=== PATIENT | male | born 1945 | race Caucasian/White ===

== ENCOUNTER → 2019-06-09 | Outpatient (CLI) | payer MEDICARE, OTHER ==
[~2019-06-09] VITALS: Ht 172.7 cm; Wt 95.0 kg
[~2019-06-09] MED LIST: ACET-2902 PO; ALPR1TAB7 PO; ASCO500 PO; ASPI81TA39 PO; ATOR10TA84 PO; AUD NEB; CYAN500T4 PO; DUTA.5 PO; ENOX30DI5 SQ; FISH1CAP49 PO; FLUT1DIS IH; FOLI0.4T14 PO; GLIP5 PO; IBUP-2070 PO; INSNOV SQ; LIDOCAINE 4% 50 ML SOLUTION TP ONE; METF-446 PO; MOM30 PO; OMEP20TA25 PO; PARO25TA21 PO; PERCT PO; SITA100 PO; VITA400T9 PO; [UNRECOGNIZED DRUG - CODE] PO; [UNRECOGNIZED DRUG - CODE] PO
[2019-06-09 10:14] VITALS: BP 122/83
== END | disposition home or self-care (01) ==
LOC: HBOWC 09:43
PROVIDERS: ATTEND Podiatrist
DX: T86.828 Other complications of skin graft (allograft) (autograft) (principal); E11.622 Type 2 diabetes mellitus with other skin ulcer; I70.248 Atherosclerosis of native arteries of left leg with ulceration of other part of lower leg; L97.825 Non-pressure chronic ulcer of other part of left lower leg with muscle involvement without evidence of necrosis; I87.2 Venous insufficiency (chronic) (peripheral); L90.9 Atrophic disorder of skin, unspecified; L60.2 Onychogryphosis; I25.10 Atherosclerotic heart disease of native coronary artery without angina pectoris; E78.5 Hyperlipidemia, unspecified; E78.00 Pure hypercholesterolemia, unspecified; I11.0 Hypertensive heart disease with heart failure; I50.30 Unspecified diastolic (congestive) heart failure; F41.1 Generalized anxiety disorder; F17.210 Nicotine dependence, cigarettes, uncomplicated; Z98.1 Arthrodesis status; Z96.649 Presence of unspecified artificial hip joint; Z86.73 Personal history of transient ischemic attack (TIA), and cerebral infarction without residual deficits; Y83.2 Surgical operation with anastomosis, bypass or graft as the cause of abnormal reaction of the patient, or of later complication, without mention of misadventure at the time of the procedure
CPT/HCPCS: 11042

== ENCOUNTER → 2019-06-16 | Outpatient (CLI) | payer MEDICARE, OTHER ==
[~2019-06-16] MED LIST changes: -AUD NEB; -CYAN500T4 PO; -ENOX30DI5 SQ; -INSNOV SQ; -MOM30 PO; -PERCT PO; -[UNRECOGNIZED DRUG - CODE] PO
[2019-06-16 10:29] VITALS: BP 120/64
== END | disposition home or self-care (01) ==
LOC: HBOWC 09:56
PROVIDERS: ATTEND Podiatrist
DX: T86.828 Other complications of skin graft (allograft) (autograft) (principal); E11.622 Type 2 diabetes mellitus with other skin ulcer; I70.248 Atherosclerosis of native arteries of left leg with ulceration of other part of lower leg; L97.825 Non-pressure chronic ulcer of other part of left lower leg with muscle involvement without evidence of necrosis; I87.2 Venous insufficiency (chronic) (peripheral); L90.9 Atrophic disorder of skin, unspecified; L60.2 Onychogryphosis; I25.10 Atherosclerotic heart disease of native coronary artery without angina pectoris; E78.5 Hyperlipidemia, unspecified; E78.00 Pure hypercholesterolemia, unspecified; I11.0 Hypertensive heart disease with heart failure; I50.30 Unspecified diastolic (congestive) heart failure; F41.1 Generalized anxiety disorder; F17.210 Nicotine dependence, cigarettes, uncomplicated; Z98.1 Arthrodesis status; Z96.649 Presence of unspecified artificial hip joint; Z86.73 Personal history of transient ischemic attack (TIA), and cerebral infarction without residual deficits; Y83.2 Surgical operation with anastomosis, bypass or graft as the cause of abnormal reaction of the patient, or of later complication, without mention of misadventure at the time of the procedure
CPT/HCPCS: 11042

== ENCOUNTER → 2019-06-21 | Outpatient (CLI) | payer MEDICARE, OTHER ==
[2019-06-21 08:20] VITALS: BP 144/84
== END | disposition home or self-care (01) ==
LOC: HBOWC 08:08
PROVIDERS: ATTEND Internal Medicine
DX: T86.828 Other complications of skin graft (allograft) (autograft) (principal); E11.622 Type 2 diabetes mellitus with other skin ulcer; I70.248 Atherosclerosis of native arteries of left leg with ulceration of other part of lower leg; L97.825 Non-pressure chronic ulcer of other part of left lower leg with muscle involvement without evidence of necrosis; I87.2 Venous insufficiency (chronic) (peripheral); L90.9 Atrophic disorder of skin, unspecified; L60.2 Onychogryphosis; I25.10 Atherosclerotic heart disease of native coronary artery without angina pectoris; E78.5 Hyperlipidemia, unspecified; E78.00 Pure hypercholesterolemia, unspecified; I11.0 Hypertensive heart disease with heart failure; I50.30 Unspecified diastolic (congestive) heart failure; F41.1 Generalized anxiety disorder; F17.210 Nicotine dependence, cigarettes, uncomplicated; Z98.1 Arthrodesis status; Z96.649 Presence of unspecified artificial hip joint; Z86.73 Personal history of transient ischemic attack (TIA), and cerebral infarction without residual deficits; Y83.2 Surgical operation with anastomosis, bypass or graft as the cause of abnormal reaction of the patient, or of later complication, without mention of misadventure at the time of the procedure
CPT/HCPCS: 11042

== ENCOUNTER → 2019-06-30 | Outpatient (CLI) | payer MEDICARE, OTHER ==
[~2019-06-30] MED LIST changes: -LIDOCAINE 4% 50 ML SOLUTION TP ONE
[2019-06-30 10:10] VITALS: BP 159/78
== END | disposition home or self-care (01) ==
LOC: HBOWC 09:50
PROVIDERS: ATTEND Podiatrist
DX: T86.828 Other complications of skin graft (allograft) (autograft) (principal); E11.622 Type 2 diabetes mellitus with other skin ulcer; L97.325 Non-pressure chronic ulcer of left ankle with muscle involvement without evidence of necrosis; I87.2 Venous insufficiency (chronic) (peripheral); L90.9 Atrophic disorder of skin, unspecified; L60.2 Onychogryphosis; I25.10 Atherosclerotic heart disease of native coronary artery without angina pectoris; E78.5 Hyperlipidemia, unspecified; E78.00 Pure hypercholesterolemia, unspecified; I11.0 Hypertensive heart disease with heart failure; I50.30 Unspecified diastolic (congestive) heart failure; F41.1 Generalized anxiety disorder; F17.210 Nicotine dependence, cigarettes, uncomplicated; Z86.73 Personal history of transient ischemic attack (TIA), and cerebral infarction without residual deficits; Z96.649 Presence of unspecified artificial hip joint; Z79.82 Long term (current) use of aspirin; Z79.84 Long term (current) use of oral hypoglycemic drugs; Z98.1 Arthrodesis status; Y83.2 Surgical operation with anastomosis, bypass or graft as the cause of abnormal reaction of the patient, or of later complication, without mention of misadventure at the time of the procedure
CPT/HCPCS: 11042

== ENCOUNTER → 2019-07-07 | Outpatient (CLI) | payer MEDICARE, OTHER ==
[~2019-07-07] MED LIST changes: +LIDOCAINE 4% 50 ML SOLUTION TP ONE
[2019-07-07 10:32] VITALS: BP 139/70
== END | disposition home or self-care (01) ==
LOC: HBOWC 10:15
PROVIDERS: ATTEND Podiatrist
DX: T86.828 Other complications of skin graft (allograft) (autograft) (principal); E11.622 Type 2 diabetes mellitus with other skin ulcer; I70.243 Atherosclerosis of native arteries of left leg with ulceration of ankle; L97.325 Non-pressure chronic ulcer of left ankle with muscle involvement without evidence of necrosis; I87.2 Venous insufficiency (chronic) (peripheral); L90.9 Atrophic disorder of skin, unspecified; L60.2 Onychogryphosis; E78.00 Pure hypercholesterolemia, unspecified; I25.10 Atherosclerotic heart disease of native coronary artery without angina pectoris; I11.0 Hypertensive heart disease with heart failure; I50.30 Unspecified diastolic (congestive) heart failure; E78.5 Hyperlipidemia, unspecified; F41.1 Generalized anxiety disorder; F17.210 Nicotine dependence, cigarettes, uncomplicated; Z96.649 Presence of unspecified artificial hip joint; Z86.73 Personal history of transient ischemic attack (TIA), and cerebral infarction without residual deficits; Z79.82 Long term (current) use of aspirin; Z79.84 Long term (current) use of oral hypoglycemic drugs; Z98.1 Arthrodesis status; Y83.2 Surgical operation with anastomosis, bypass or graft as the cause of abnormal reaction of the patient, or of later complication, without mention of misadventure at the time of the procedure
CPT/HCPCS: 11042

== ENCOUNTER → 2019-07-14 | Outpatient (CLI) | payer MEDICARE, OTHER ==
[2019-07-14 10:20] VITALS: BP 139/73
== END | disposition home or self-care (01) ==
LOC: HBOWC 10:02
PROVIDERS: ATTEND Podiatrist
DX: T86.828 Other complications of skin graft (allograft) (autograft) (principal); I70.248 Atherosclerosis of native arteries of left leg with ulceration of other part of lower leg; E11.622 Type 2 diabetes mellitus with other skin ulcer; L97.825 Non-pressure chronic ulcer of other part of left lower leg with muscle involvement without evidence of necrosis; I87.2 Venous insufficiency (chronic) (peripheral); L90.9 Atrophic disorder of skin, unspecified; L60.2 Onychogryphosis; I25.10 Atherosclerotic heart disease of native coronary artery without angina pectoris; E78.5 Hyperlipidemia, unspecified; E78.00 Pure hypercholesterolemia, unspecified; I11.0 Hypertensive heart disease with heart failure; I50.30 Unspecified diastolic (congestive) heart failure; F41.1 Generalized anxiety disorder; F17.210 Nicotine dependence, cigarettes, uncomplicated; Z96.649 Presence of unspecified artificial hip joint; Z86.73 Personal history of transient ischemic attack (TIA), and cerebral infarction without residual deficits; Z79.82 Long term (current) use of aspirin; Z79.84 Long term (current) use of oral hypoglycemic drugs; Z98.1 Arthrodesis status; Y83.2 Surgical operation with anastomosis, bypass or graft as the cause of abnormal reaction of the patient, or of later complication, without mention of misadventure at the time of the procedure
CPT/HCPCS: 11042

== ENCOUNTER → 2019-07-21 | Outpatient (CLI) | payer MEDICARE, OTHER ==
[~2019-07-21] MED LIST changes: +LIDOCAINE 2% 5 ML JELLY TP ONE; -LIDOCAINE 4% 50 ML SOLUTION TP ONE
[2019-07-21 10:48] VITALS: BP 133/85
== END | disposition home or self-care (01) ==
LOC: HBOWC 10:06
PROVIDERS: ATTEND Podiatrist
DX: T86.828 Other complications of skin graft (allograft) (autograft) (principal); I70.248 Atherosclerosis of native arteries of left leg with ulceration of other part of lower leg; E11.622 Type 2 diabetes mellitus with other skin ulcer; L97.825 Non-pressure chronic ulcer of other part of left lower leg with muscle involvement without evidence of necrosis; I87.2 Venous insufficiency (chronic) (peripheral); L90.9 Atrophic disorder of skin, unspecified; L60.2 Onychogryphosis; I25.10 Atherosclerotic heart disease of native coronary artery without angina pectoris; E78.5 Hyperlipidemia, unspecified; E78.00 Pure hypercholesterolemia, unspecified; I11.0 Hypertensive heart disease with heart failure; I50.30 Unspecified diastolic (congestive) heart failure; F41.1 Generalized anxiety disorder; F17.210 Nicotine dependence, cigarettes, uncomplicated; Z96.649 Presence of unspecified artificial hip joint; Z86.73 Personal history of transient ischemic attack (TIA), and cerebral infarction without residual deficits; Z79.82 Long term (current) use of aspirin; Z79.84 Long term (current) use of oral hypoglycemic drugs; Z98.1 Arthrodesis status; Y83.2 Surgical operation with anastomosis, bypass or graft as the cause of abnormal reaction of the patient, or of later complication, without mention of misadventure at the time of the procedure
CPT/HCPCS: 11042

== ENCOUNTER → 2019-07-28 | Outpatient (CLI) | payer MEDICARE, OTHER ==
[2019-07-28 10:44] VITALS: BP 124/76
== END | disposition home or self-care (01) ==
LOC: HBOWC 10:11
PROVIDERS: ATTEND Podiatrist
DX: T86.828 Other complications of skin graft (allograft) (autograft) (principal); I70.248 Atherosclerosis of native arteries of left leg with ulceration of other part of lower leg; E11.622 Type 2 diabetes mellitus with other skin ulcer; L97.825 Non-pressure chronic ulcer of other part of left lower leg with muscle involvement without evidence of necrosis; I87.2 Venous insufficiency (chronic) (peripheral); L90.9 Atrophic disorder of skin, unspecified; L60.2 Onychogryphosis; I25.10 Atherosclerotic heart disease of native coronary artery without angina pectoris; E78.5 Hyperlipidemia, unspecified; E78.00 Pure hypercholesterolemia, unspecified; I11.0 Hypertensive heart disease with heart failure; I50.30 Unspecified diastolic (congestive) heart failure; F41.1 Generalized anxiety disorder; F17.210 Nicotine dependence, cigarettes, uncomplicated; Z96.649 Presence of unspecified artificial hip joint; Z86.73 Personal history of transient ischemic attack (TIA), and cerebral infarction without residual deficits; Z79.82 Long term (current) use of aspirin; Z79.84 Long term (current) use of oral hypoglycemic drugs; Z98.1 Arthrodesis status; Y83.2 Surgical operation with anastomosis, bypass or graft as the cause of abnormal reaction of the patient, or of later complication, without mention of misadventure at the time of the procedure
CPT/HCPCS: 11042

== ENCOUNTER → 2019-08-04 | Outpatient (CLI) | payer MEDICARE, OTHER ==
[2019-08-04 10:10] VITALS: BP 125/69
== END | disposition home or self-care (01) ==
LOC: HBOWC 10:24
PROVIDERS: ATTEND Podiatrist
DX: T86.828 Other complications of skin graft (allograft) (autograft) (principal); I70.248 Atherosclerosis of native arteries of left leg with ulceration of other part of lower leg; E11.622 Type 2 diabetes mellitus with other skin ulcer; L97.822 Non-pressure chronic ulcer of other part of left lower leg with fat layer exposed; I87.2 Venous insufficiency (chronic) (peripheral); L90.9 Atrophic disorder of skin, unspecified; I25.10 Atherosclerotic heart disease of native coronary artery without angina pectoris; E78.5 Hyperlipidemia, unspecified; E78.00 Pure hypercholesterolemia, unspecified; I11.0 Hypertensive heart disease with heart failure; I50.30 Unspecified diastolic (congestive) heart failure; F41.1 Generalized anxiety disorder; F17.210 Nicotine dependence, cigarettes, uncomplicated; Z96.649 Presence of unspecified artificial hip joint; Z86.73 Personal history of transient ischemic attack (TIA), and cerebral infarction without residual deficits; Z79.82 Long term (current) use of aspirin; Z79.84 Long term (current) use of oral hypoglycemic drugs; Y83.2 Surgical operation with anastomosis, bypass or graft as the cause of abnormal reaction of the patient, or of later complication, without mention of misadventure at the time of the procedure
CPT/HCPCS: 11042

== ENCOUNTER → 2019-08-11 | Outpatient (CLI) | payer MEDICARE, OTHER ==
[2019-08-11 10:37] VITALS: BP 137/69
== END | disposition home or self-care (01) ==
LOC: HBOWC 10:07
PROVIDERS: ATTEND Podiatrist
DX: T86.828 Other complications of skin graft (allograft) (autograft) (principal); I70.248 Atherosclerosis of native arteries of left leg with ulceration of other part of lower leg; E11.622 Type 2 diabetes mellitus with other skin ulcer; L97.822 Non-pressure chronic ulcer of other part of left lower leg with fat layer exposed; I87.2 Venous insufficiency (chronic) (peripheral); L90.9 Atrophic disorder of skin, unspecified; I25.10 Atherosclerotic heart disease of native coronary artery without angina pectoris; E78.5 Hyperlipidemia, unspecified; E78.00 Pure hypercholesterolemia, unspecified; I11.0 Hypertensive heart disease with heart failure; I50.30 Unspecified diastolic (congestive) heart failure; F41.1 Generalized anxiety disorder; F17.210 Nicotine dependence, cigarettes, uncomplicated; Z96.649 Presence of unspecified artificial hip joint; Z86.73 Personal history of transient ischemic attack (TIA), and cerebral infarction without residual deficits; Z79.82 Long term (current) use of aspirin; Z79.84 Long term (current) use of oral hypoglycemic drugs; Y83.2 Surgical operation with anastomosis, bypass or graft as the cause of abnormal reaction of the patient, or of later complication, without mention of misadventure at the time of the procedure
CPT/HCPCS: 11042

== ENCOUNTER → 2019-08-18 | Outpatient (CLI) | payer MEDICARE, OTHER ==
[2019-08-18 10:53] VITALS: BP 133/66
== END | disposition home or self-care (01) ==
LOC: HBOWC 10:13
PROVIDERS: ATTEND Podiatrist
DX: T86.828 Other complications of skin graft (allograft) (autograft) (principal); I70.248 Atherosclerosis of native arteries of left leg with ulceration of other part of lower leg; E11.622 Type 2 diabetes mellitus with other skin ulcer; L97.822 Non-pressure chronic ulcer of other part of left lower leg with fat layer exposed; L90.9 Atrophic disorder of skin, unspecified; I25.10 Atherosclerotic heart disease of native coronary artery without angina pectoris; E78.5 Hyperlipidemia, unspecified; E78.00 Pure hypercholesterolemia, unspecified; I11.0 Hypertensive heart disease with heart failure; I50.30 Unspecified diastolic (congestive) heart failure; F41.1 Generalized anxiety disorder; I87.2 Venous insufficiency (chronic) (peripheral); Z98.1 Arthrodesis status; F17.210 Nicotine dependence, cigarettes, uncomplicated; Z96.649 Presence of unspecified artificial hip joint; Z86.73 Personal history of transient ischemic attack (TIA), and cerebral infarction without residual deficits; Z79.82 Long term (current) use of aspirin; Z79.84 Long term (current) use of oral hypoglycemic drugs; Y83.2 Surgical operation with anastomosis, bypass or graft as the cause of abnormal reaction of the patient, or of later complication, without mention of misadventure at the time of the procedure
CPT/HCPCS: 11042

== ENCOUNTER → 2019-08-25 | Outpatient (CLI) | payer MEDICARE, OTHER ==
[~2019-08-25] MED LIST changes: -LIDOCAINE 2% 5 ML JELLY TP ONE
[2019-08-25 10:17] VITALS: BP 120/82
== END | disposition home or self-care (01) ==
LOC: HBOWC 10:03
PROVIDERS: ATTEND Podiatrist
DX: T86.828 Other complications of skin graft (allograft) (autograft) (principal); E11.622 Type 2 diabetes mellitus with other skin ulcer; I70.243 Atherosclerosis of native arteries of left leg with ulceration of ankle; L97.322 Non-pressure chronic ulcer of left ankle with fat layer exposed; L90.9 Atrophic disorder of skin, unspecified; I25.10 Atherosclerotic heart disease of native coronary artery without angina pectoris; E78.5 Hyperlipidemia, unspecified; I11.0 Hypertensive heart disease with heart failure; I50.30 Unspecified diastolic (congestive) heart failure; F41.1 Generalized anxiety disorder; I87.2 Venous insufficiency (chronic) (peripheral); E78.00 Pure hypercholesterolemia, unspecified; L60.2 Onychogryphosis; F17.210 Nicotine dependence, cigarettes, uncomplicated; Z98.1 Arthrodesis status; Z96.649 Presence of unspecified artificial hip joint; Z86.73 Personal history of transient ischemic attack (TIA), and cerebral infarction without residual deficits; Z79.82 Long term (current) use of aspirin; Z79.84 Long term (current) use of oral hypoglycemic drugs; Y83.2 Surgical operation with anastomosis, bypass or graft as the cause of abnormal reaction of the patient, or of later complication, without mention of misadventure at the time of the procedure
CPT/HCPCS: 11042

== ENCOUNTER → 2019-09-01 | Outpatient (CLI) | payer MEDICARE, OTHER ==
[~2019-09-01] MED LIST changes: -ACET-2902 PO; +ACET-3207 PO
[2019-09-01 10:32] VITALS: BP 138/73
== END | disposition home or self-care (01) ==
LOC: HBOWC 10:26
PROVIDERS: ATTEND Podiatrist
DX: T86.828 Other complications of skin graft (allograft) (autograft) (principal); E11.622 Type 2 diabetes mellitus with other skin ulcer; I70.243 Atherosclerosis of native arteries of left leg with ulceration of ankle; L97.322 Non-pressure chronic ulcer of left ankle with fat layer exposed; L90.9 Atrophic disorder of skin, unspecified; I25.10 Atherosclerotic heart disease of native coronary artery without angina pectoris; E78.5 Hyperlipidemia, unspecified; I11.0 Hypertensive heart disease with heart failure; I50.30 Unspecified diastolic (congestive) heart failure; F41.1 Generalized anxiety disorder; I87.2 Venous insufficiency (chronic) (peripheral); E78.00 Pure hypercholesterolemia, unspecified; L60.2 Onychogryphosis; F17.210 Nicotine dependence, cigarettes, uncomplicated; Z98.1 Arthrodesis status; Z96.649 Presence of unspecified artificial hip joint; Z86.73 Personal history of transient ischemic attack (TIA), and cerebral infarction without residual deficits; Z79.82 Long term (current) use of aspirin; Z79.84 Long term (current) use of oral hypoglycemic drugs; Y83.2 Surgical operation with anastomosis, bypass or graft as the cause of abnormal reaction of the patient, or of later complication, without mention of misadventure at the time of the procedure
CPT/HCPCS: 11042

== ENCOUNTER → 2019-09-08 | Outpatient (CLI) | payer MEDICARE, OTHER ==
[~2019-09-08] MED LIST changes: +LIDOCAINE 4% 50 ML SOLUTION TP ONE
[2019-09-08 11:14] VITALS: BP 127/61
== END | disposition home or self-care (01) ==
LOC: HBOWC 10:19
PROVIDERS: ATTEND Podiatrist
DX: T86.828 Other complications of skin graft (allograft) (autograft) (principal); I70.243 Atherosclerosis of native arteries of left leg with ulceration of ankle; E11.622 Type 2 diabetes mellitus with other skin ulcer; L97.322 Non-pressure chronic ulcer of left ankle with fat layer exposed; L90.9 Atrophic disorder of skin, unspecified; I25.10 Atherosclerotic heart disease of native coronary artery without angina pectoris; E78.5 Hyperlipidemia, unspecified; I11.0 Hypertensive heart disease with heart failure; I50.30 Unspecified diastolic (congestive) heart failure; F41.1 Generalized anxiety disorder; I87.2 Venous insufficiency (chronic) (peripheral); E78.00 Pure hypercholesterolemia, unspecified; L60.2 Onychogryphosis; F17.210 Nicotine dependence, cigarettes, uncomplicated; Z98.1 Arthrodesis status; Z96.649 Presence of unspecified artificial hip joint; Z86.73 Personal history of transient ischemic attack (TIA), and cerebral infarction without residual deficits; Z79.82 Long term (current) use of aspirin; Z79.84 Long term (current) use of oral hypoglycemic drugs; Y83.2 Surgical operation with anastomosis, bypass or graft as the cause of abnormal reaction of the patient, or of later complication, without mention of misadventure at the time of the procedure
CPT/HCPCS: 11042

== ENCOUNTER → 2019-09-15 | Outpatient (CLI) | payer MEDICARE, OTHER ==
[~2019-09-15] MED LIST changes: +LIDOCAINE 2% 5 ML JELLY TP ONE; -LIDOCAINE 4% 50 ML SOLUTION TP ONE
== END | disposition home or self-care (01) ==
LOC: HBOWC 10:04
PROVIDERS: ATTEND Podiatrist
DX: I70.243 Atherosclerosis of native arteries of left leg with ulceration of ankle (principal); E11.622 Type 2 diabetes mellitus with other skin ulcer; L97.322 Non-pressure chronic ulcer of left ankle with fat layer exposed; I87.2 Venous insufficiency (chronic) (peripheral); E78.00 Pure hypercholesterolemia, unspecified; I25.10 Atherosclerotic heart disease of native coronary artery without angina pectoris; F41.1 Generalized anxiety disorder; E78.5 Hyperlipidemia, unspecified; I11.0 Hypertensive heart disease with heart failure; I50.30 Unspecified diastolic (congestive) heart failure; L60.2 Onychogryphosis; F17.210 Nicotine dependence, cigarettes, uncomplicated; Z96.649 Presence of unspecified artificial hip joint; Z79.84 Long term (current) use of oral hypoglycemic drugs; Z86.73 Personal history of transient ischemic attack (TIA), and cerebral infarction without residual deficits; Z79.4 Long term (current) use of insulin; Z79.82 Long term (current) use of aspirin; Z98.1 Arthrodesis status; Y83.2 Surgical operation with anastomosis, bypass or graft as the cause of abnormal reaction of the patient, or of later complication, without mention of misadventure at the time of the procedure
CPT/HCPCS: 11042

== ENCOUNTER → 2019-09-22 | Outpatient (CLI) | payer MEDICARE ==
[~2019-09-22] MED LIST changes: -LIDOCAINE 2% 5 ML JELLY TP ONE
== END | disposition home or self-care (01) ==
LOC: HBOWC 10:03
PROVIDERS: ATTEND Podiatrist
DX: I70.243 Atherosclerosis of native arteries of left leg with ulceration of ankle (principal); E11.622 Type 2 diabetes mellitus with other skin ulcer; L97.322 Non-pressure chronic ulcer of left ankle with fat layer exposed; I87.2 Venous insufficiency (chronic) (peripheral); E78.00 Pure hypercholesterolemia, unspecified; I25.10 Atherosclerotic heart disease of native coronary artery without angina pectoris; F41.1 Generalized anxiety disorder; E78.5 Hyperlipidemia, unspecified; I11.0 Hypertensive heart disease with heart failure; I50.30 Unspecified diastolic (congestive) heart failure; L60.2 Onychogryphosis; F17.210 Nicotine dependence, cigarettes, uncomplicated; Z96.649 Presence of unspecified artificial hip joint; Z79.84 Long term (current) use of oral hypoglycemic drugs; Z86.73 Personal history of transient ischemic attack (TIA), and cerebral infarction without residual deficits; Z79.4 Long term (current) use of insulin; Z79.82 Long term (current) use of aspirin; Z98.1 Arthrodesis status; Y83.2 Surgical operation with anastomosis, bypass or graft as the cause of abnormal reaction of the patient, or of later complication, without mention of misadventure at the time of the procedure
CPT/HCPCS: 11042

== ENCOUNTER → 2019-09-29 | Outpatient (CLI) | payer MEDICARE | END | disposition home or self-care (01) | LOC: HBOWC 09:59 | PROVIDERS: ATTEND Podiatrist | DX: I70.243 Atherosclerosis of native arteries of left leg with ulceration of ankle (principal); E11.622 Type 2 diabetes mellitus with other skin ulcer; L97.322 Non-pressure chronic ulcer of left ankle with fat layer exposed; I87.2 Venous insufficiency (chronic) (peripheral); E78.00 Pure hypercholesterolemia, unspecified; I25.10 Atherosclerotic heart disease of native coronary artery without angina pectoris; F41.1 Generalized anxiety disorder; E78.5 Hyperlipidemia, unspecified; I11.0 Hypertensive heart disease with heart failure; I50.30 Unspecified diastolic (congestive) heart failure; L60.2 Onychogryphosis; L90.9 Atrophic disorder of skin, unspecified; F17.210 Nicotine dependence, cigarettes, uncomplicated; Z96.649 Presence of unspecified artificial hip joint; Z79.84 Long term (current) use of oral hypoglycemic drugs; Z86.73 Personal history of transient ischemic attack (TIA), and cerebral infarction without residual deficits; Z79.4 Long term (current) use of insulin; Z79.82 Long term (current) use of aspirin; Z98.1 Arthrodesis status | CPT/HCPCS: 11042 ==

== ENCOUNTER → 2019-10-06 | Outpatient (CLI) | payer MEDICARE, MEDICAID, OTHER | END | disposition home or self-care (01) | LOC: HBOWC 09:53 | PROVIDERS: ATTEND Podiatrist | DX: I70.248 Atherosclerosis of native arteries of left leg with ulceration of other part of lower leg (principal); E11.622 Type 2 diabetes mellitus with other skin ulcer; L97.822 Non-pressure chronic ulcer of other part of left lower leg with fat layer exposed; I70.243 Atherosclerosis of native arteries of left leg with ulceration of ankle; L97.322 Non-pressure chronic ulcer of left ankle with fat layer exposed; I87.2 Venous insufficiency (chronic) (peripheral); E78.00 Pure hypercholesterolemia, unspecified; I25.10 Atherosclerotic heart disease of native coronary artery without angina pectoris; F41.1 Generalized anxiety disorder; E78.5 Hyperlipidemia, unspecified; I11.0 Hypertensive heart disease with heart failure; I50.30 Unspecified diastolic (congestive) heart failure; L60.2 Onychogryphosis; L90.9 Atrophic disorder of skin, unspecified; F17.210 Nicotine dependence, cigarettes, uncomplicated; Z96.649 Presence of unspecified artificial hip joint; Z79.84 Long term (current) use of oral hypoglycemic drugs; Z86.73 Personal history of transient ischemic attack (TIA), and cerebral infarction without residual deficits; Z79.4 Long term (current) use of insulin; Z79.82 Long term (current) use of aspirin; Z98.1 Arthrodesis status | CPT/HCPCS: 11042 ==

== ENCOUNTER → 2019-10-13 | Outpatient (CLI) | payer MEDICARE, OTHER ==
[~2019-10-13] MED LIST changes: +HYDROCORTISONE 1% 30 GM CREAM TP ONE; +LIDOCAINE 2% 5 ML JELLY ONE
== END | disposition home or self-care (01) ==
LOC: HBOWC 09:59
PROVIDERS: ATTEND Podiatrist
DX: I70.248 Atherosclerosis of native arteries of left leg with ulceration of other part of lower leg (principal); E11.622 Type 2 diabetes mellitus with other skin ulcer; L97.822 Non-pressure chronic ulcer of other part of left lower leg with fat layer exposed; I70.243 Atherosclerosis of native arteries of left leg with ulceration of ankle; L97.322 Non-pressure chronic ulcer of left ankle with fat layer exposed; I87.2 Venous insufficiency (chronic) (peripheral); E78.00 Pure hypercholesterolemia, unspecified; I25.10 Atherosclerotic heart disease of native coronary artery without angina pectoris; F41.1 Generalized anxiety disorder; E78.5 Hyperlipidemia, unspecified; I11.0 Hypertensive heart disease with heart failure; I50.30 Unspecified diastolic (congestive) heart failure; L60.2 Onychogryphosis; L90.9 Atrophic disorder of skin, unspecified; L84 Corns and callosities; F17.210 Nicotine dependence, cigarettes, uncomplicated; Z96.649 Presence of unspecified artificial hip joint; Z79.84 Long term (current) use of oral hypoglycemic drugs; Z86.73 Personal history of transient ischemic attack (TIA), and cerebral infarction without residual deficits; Z79.4 Long term (current) use of insulin; Z79.82 Long term (current) use of aspirin; Z98.1 Arthrodesis status
CPT/HCPCS: 11042

== ENCOUNTER → 2019-10-20 | Outpatient (CLI) | payer MEDICARE, OTHER ==
[~2019-10-20] MED LIST changes: -HYDROCORTISONE 1% 30 GM CREAM TP ONE; -LIDOCAINE 2% 5 ML JELLY ONE
== END | disposition home or self-care (01) ==
LOC: HBOWC 10:01
PROVIDERS: ATTEND Podiatrist
DX: I70.248 Atherosclerosis of native arteries of left leg with ulceration of other part of lower leg (principal); E11.622 Type 2 diabetes mellitus with other skin ulcer; L97.822 Non-pressure chronic ulcer of other part of left lower leg with fat layer exposed; I70.243 Atherosclerosis of native arteries of left leg with ulceration of ankle; L97.322 Non-pressure chronic ulcer of left ankle with fat layer exposed; I87.2 Venous insufficiency (chronic) (peripheral); E78.00 Pure hypercholesterolemia, unspecified; I25.10 Atherosclerotic heart disease of native coronary artery without angina pectoris; F41.1 Generalized anxiety disorder; E78.5 Hyperlipidemia, unspecified; I11.0 Hypertensive heart disease with heart failure; I50.30 Unspecified diastolic (congestive) heart failure; L60.2 Onychogryphosis; L90.9 Atrophic disorder of skin, unspecified; L84 Corns and callosities; F17.210 Nicotine dependence, cigarettes, uncomplicated; Z96.649 Presence of unspecified artificial hip joint; Z79.84 Long term (current) use of oral hypoglycemic drugs; Z86.73 Personal history of transient ischemic attack (TIA), and cerebral infarction without residual deficits; Z79.4 Long term (current) use of insulin; Z79.82 Long term (current) use of aspirin; Z98.1 Arthrodesis status
CPT/HCPCS: 11042

== ENCOUNTER → 2019-11-03 | Outpatient (CLI) | payer MEDICARE, OTHER | END | disposition home or self-care (01) | LOC: HBOWC 10:01 | PROVIDERS: ATTEND Podiatrist | DX: I70.248 Atherosclerosis of native arteries of left leg with ulceration of other part of lower leg (principal); E11.622 Type 2 diabetes mellitus with other skin ulcer; L97.822 Non-pressure chronic ulcer of other part of left lower leg with fat layer exposed; I70.243 Atherosclerosis of native arteries of left leg with ulceration of ankle; L97.322 Non-pressure chronic ulcer of left ankle with fat layer exposed; I87.2 Venous insufficiency (chronic) (peripheral); E78.00 Pure hypercholesterolemia, unspecified; I25.10 Atherosclerotic heart disease of native coronary artery without angina pectoris; F41.1 Generalized anxiety disorder; E78.5 Hyperlipidemia, unspecified; I11.0 Hypertensive heart disease with heart failure; I50.30 Unspecified diastolic (congestive) heart failure; L60.2 Onychogryphosis; L90.9 Atrophic disorder of skin, unspecified; L84 Corns and callosities; F17.210 Nicotine dependence, cigarettes, uncomplicated; Z96.649 Presence of unspecified artificial hip joint; Z86.73 Personal history of transient ischemic attack (TIA), and cerebral infarction without residual deficits; Z79.84 Long term (current) use of oral hypoglycemic drugs; Z79.4 Long term (current) use of insulin; Z79.82 Long term (current) use of aspirin; Z98.1 Arthrodesis status | CPT/HCPCS: 11042 ==

== ENCOUNTER → 2019-11-10 | Outpatient (CLI) | payer MEDICARE, OTHER | END | disposition home or self-care (01) | LOC: HBOWC 10:13 | PROVIDERS: ATTEND Podiatrist | DX: I70.248 Atherosclerosis of native arteries of left leg with ulceration of other part of lower leg (principal); E11.622 Type 2 diabetes mellitus with other skin ulcer; L97.822 Non-pressure chronic ulcer of other part of left lower leg with fat layer exposed; I70.243 Atherosclerosis of native arteries of left leg with ulceration of ankle; L97.322 Non-pressure chronic ulcer of left ankle with fat layer exposed; I87.2 Venous insufficiency (chronic) (peripheral); E78.00 Pure hypercholesterolemia, unspecified; I25.10 Atherosclerotic heart disease of native coronary artery without angina pectoris; F41.1 Generalized anxiety disorder; E78.5 Hyperlipidemia, unspecified; I11.0 Hypertensive heart disease with heart failure; I50.30 Unspecified diastolic (congestive) heart failure; L60.2 Onychogryphosis; L90.9 Atrophic disorder of skin, unspecified; L84 Corns and callosities; F17.210 Nicotine dependence, cigarettes, uncomplicated; Z96.649 Presence of unspecified artificial hip joint; Z86.73 Personal history of transient ischemic attack (TIA), and cerebral infarction without residual deficits; Z79.84 Long term (current) use of oral hypoglycemic drugs; Z79.4 Long term (current) use of insulin; Z79.82 Long term (current) use of aspirin; Z98.1 Arthrodesis status | CPT/HCPCS: 11042 ==

== ENCOUNTER → 2019-11-17 | Outpatient (CLI) | payer MEDICARE, OTHER | END | disposition home or self-care (01) | LOC: HBOWC 10:03 | PROVIDERS: ATTEND Podiatrist | DX: I70.248 Atherosclerosis of native arteries of left leg with ulceration of other part of lower leg (principal); E11.622 Type 2 diabetes mellitus with other skin ulcer; L97.822 Non-pressure chronic ulcer of other part of left lower leg with fat layer exposed; I70.243 Atherosclerosis of native arteries of left leg with ulceration of ankle; L97.322 Non-pressure chronic ulcer of left ankle with fat layer exposed; I87.2 Venous insufficiency (chronic) (peripheral); E78.00 Pure hypercholesterolemia, unspecified; I25.10 Atherosclerotic heart disease of native coronary artery without angina pectoris; F41.1 Generalized anxiety disorder; E78.5 Hyperlipidemia, unspecified; I11.0 Hypertensive heart disease with heart failure; I50.30 Unspecified diastolic (congestive) heart failure; L60.2 Onychogryphosis; L90.9 Atrophic disorder of skin, unspecified; L84 Corns and callosities; F17.210 Nicotine dependence, cigarettes, uncomplicated; Z96.649 Presence of unspecified artificial hip joint; Z86.73 Personal history of transient ischemic attack (TIA), and cerebral infarction without residual deficits; Z79.84 Long term (current) use of oral hypoglycemic drugs; Z79.4 Long term (current) use of insulin; Z79.82 Long term (current) use of aspirin; Z98.1 Arthrodesis status | CPT/HCPCS: 11042 ==

== ENCOUNTER → 2019-12-01 | Outpatient (CLI) | payer MEDICARE, OTHER | END | disposition home or self-care (01) | LOC: HBOWC 10:02 | PROVIDERS: ATTEND Podiatrist | DX: I70.248 Atherosclerosis of native arteries of left leg with ulceration of other part of lower leg (principal); E11.622 Type 2 diabetes mellitus with other skin ulcer; L97.821 Non-pressure chronic ulcer of other part of left lower leg limited to breakdown of skin; I70.243 Atherosclerosis of native arteries of left leg with ulceration of ankle; L97.322 Non-pressure chronic ulcer of left ankle with fat layer exposed; I87.2 Venous insufficiency (chronic) (peripheral); E78.00 Pure hypercholesterolemia, unspecified; I25.10 Atherosclerotic heart disease of native coronary artery without angina pectoris; F41.1 Generalized anxiety disorder; E78.5 Hyperlipidemia, unspecified; I11.0 Hypertensive heart disease with heart failure; I50.30 Unspecified diastolic (congestive) heart failure; L60.2 Onychogryphosis; L90.9 Atrophic disorder of skin, unspecified; L84 Corns and callosities; F17.210 Nicotine dependence, cigarettes, uncomplicated; Z96.649 Presence of unspecified artificial hip joint; Z86.73 Personal history of transient ischemic attack (TIA), and cerebral infarction without residual deficits; Z79.84 Long term (current) use of oral hypoglycemic drugs; Z79.4 Long term (current) use of insulin; Z79.82 Long term (current) use of aspirin; Z98.1 Arthrodesis status ==

== ENCOUNTER → 2019-12-08 | Outpatient (CLI) | payer MEDICARE, OTHER | END | disposition home or self-care (01) | LOC: HBOWC 09:59 | PROVIDERS: ATTEND Podiatrist | DX: I70.248 Atherosclerosis of native arteries of left leg with ulceration of other part of lower leg (principal); E11.622 Type 2 diabetes mellitus with other skin ulcer; L97.821 Non-pressure chronic ulcer of other part of left lower leg limited to breakdown of skin; I70.243 Atherosclerosis of native arteries of left leg with ulceration of ankle; L97.322 Non-pressure chronic ulcer of left ankle with fat layer exposed; I87.2 Venous insufficiency (chronic) (peripheral); E78.00 Pure hypercholesterolemia, unspecified; I25.10 Atherosclerotic heart disease of native coronary artery without angina pectoris; F41.1 Generalized anxiety disorder; E78.5 Hyperlipidemia, unspecified; I11.0 Hypertensive heart disease with heart failure; I50.30 Unspecified diastolic (congestive) heart failure; L60.2 Onychogryphosis; L90.9 Atrophic disorder of skin, unspecified; L84 Corns and callosities; F17.210 Nicotine dependence, cigarettes, uncomplicated; Z96.649 Presence of unspecified artificial hip joint; Z86.73 Personal history of transient ischemic attack (TIA), and cerebral infarction without residual deficits; Z79.84 Long term (current) use of oral hypoglycemic drugs; Z79.4 Long term (current) use of insulin; Z79.82 Long term (current) use of aspirin; Z98.1 Arthrodesis status | CPT/HCPCS: 11042 ==

== ENCOUNTER → 2019-12-15 | Outpatient (CLI) | payer MEDICARE, OTHER | END | disposition home or self-care (01) | LOC: HBOWC 09:58 | PROVIDERS: ATTEND Podiatrist | DX: I70.248 Atherosclerosis of native arteries of left leg with ulceration of other part of lower leg (principal); E11.622 Type 2 diabetes mellitus with other skin ulcer; L97.821 Non-pressure chronic ulcer of other part of left lower leg limited to breakdown of skin; I70.243 Atherosclerosis of native arteries of left leg with ulceration of ankle; L97.322 Non-pressure chronic ulcer of left ankle with fat layer exposed; I87.2 Venous insufficiency (chronic) (peripheral); E78.00 Pure hypercholesterolemia, unspecified; I25.10 Atherosclerotic heart disease of native coronary artery without angina pectoris; F41.1 Generalized anxiety disorder; E78.5 Hyperlipidemia, unspecified; I11.0 Hypertensive heart disease with heart failure; I50.30 Unspecified diastolic (congestive) heart failure; L60.2 Onychogryphosis; L90.9 Atrophic disorder of skin, unspecified; L84 Corns and callosities; F17.210 Nicotine dependence, cigarettes, uncomplicated; Z96.649 Presence of unspecified artificial hip joint; Z86.73 Personal history of transient ischemic attack (TIA), and cerebral infarction without residual deficits; Z79.84 Long term (current) use of oral hypoglycemic drugs; Z79.4 Long term (current) use of insulin; Z79.82 Long term (current) use of aspirin; Z98.1 Arthrodesis status | CPT/HCPCS: 11042 ==